=== PATIENT | female | born 1950 | race Two or more races ===

== ENCOUNTER 2020-07-11 06:29 | Day surgery (SDC) | payer MEDICAID ==
--- NOTE | 2020-04-13 14:14 | Opthalmology H&P ---
Ophthalmology H&P H&P Chief Complaint: decreased vision in right eye HPI Vision Affects Ability to: read, manage personal affairs HPI Narrative Blurry vision Exam Visual Acuity: OD 20/100 OS 20/25 Tension: OD 19 OS 36 Eye Exam: normal OU: external exam, palpebral fissure-width, marginal reflex distance, levator function, corneas, anterior chambers, fundus exam; findings: lens - NS Cataract OD> IOL OS Assessment/Plan Treatment Plan: cataract extraction w/ lens implant Goals of Treatment: improvement of vision, enhance quality of life Attestation Attestation The risks and benefits of the surgery as well as alternative procedures were explained to the patient in detail. Calixto Parra MD Apr 13, 2020 14:14
--- NOTE | 2020-04-13 14:15 | Pre-Procedure Note/Attestation ---
Pre-Procedure Note/Attestation Complete Prior to Procedure Planned Procedure: right Procedure Narrative: Cataract extraction with intraocular lens implant right eye Indications for Procedure Pre-Operative Diagnosis: Cataract extraction with intraocular lens implant right eye Attestation I attest that I discussed the nature of the procedure; its benefits; risks and complications; and alternatives (and the risks and benefits of such alternatives), prior to the procedure, with the patient (or the patient's legal field service representative). I attest that, if there was a reasonable possibility of needing a blood transfusion, the patient (or the patient's legal field service representative) was given the [facility] standardized written summary, pursuant to the Rayo Maddie Blood Safety Act ([place] Health and Safety Code # 1645, as amended). I attest that I re-evaluated the patient just prior to the surgery and that there has been no change in the patient's H&P, except as documented below: Calixto Parra MD Apr 13, 2020 14:15
--- NOTE | 2020-07-07 16:30 | Opthalmology H&P ---
Ophthalmology H&P H&P Chief Complaint: decreased vision in right eye HPI Vision Affects Ability to: read, focus/use eyes together, manage personal affairs HPI Narrative Blurry vision Exam Visual Acuity: OD 20/100 OS 20/25 Tension: OD 19 OS 36 Eye Exam: normal OU: external exam, palpebral fissure-width, marginal reflex distance, levator function, corneas, anterior chambers, lens - NS Cataract OD, Pseudo OS, fundus exam; findings: lens - NS Cataract OD, Pseudo OS Assessment/Plan Treatment Plan: cataract extraction w/ lens implant Goals of Treatment: improvement of vision, enhance quality of life Attestation Attestation The risks and benefits of the surgery as well as alternative procedures were explained to the patient in detail. Calixto Parra MD Jul 07, 2020 16:30
--- NOTE | 2020-07-07 16:32 | Pre-Procedure Note/Attestation ---
Pre-Procedure Note/Attestation Complete Prior to Procedure Planned Procedure: right Procedure Narrative: Cataract extraction with intraocular lens implant right eye Indications for Procedure Pre-Operative Diagnosis: Nuclear sclerotic cataract right eye Attestation I attest that I discussed the nature of the procedure; its benefits; risks and complications; and alternatives (and the risks and benefits of such alternatives), prior to the procedure, with the patient (or the patient's legal outside industrial sales representative). I attest that, if there was a reasonable possibility of needing a blood transfusion, the patient (or the patient's legal outside industrial sales representative) was given the [facility] standardized written summary, pursuant to the Rayo [place] Blood Safety Act ([place] Health and Safety Code # 1645, as amended). I attest that I re-evaluated the patient just prior to the surgery and that there has been no change in the patient's H&P, except as documented below: Calixto Parra MD Jul 07, 2020 16:32
[~2020-07-11] VITALS: Ht 152.4 cm; Wt 72.6 kg
[2020-07-11] VITALS (9 sets, daily range): BP systolic 123–145; BP diastolic 68–82
[~2020-07-11 06:29] MED LIST: AMLODIPINE BESYL5 MG ORAL; Akten 3.5% 1ml Btl RIGHT EYE ONE; GLIPIZIDE5 MG ORAL; HYDROCHLOROTHIA25 MG ORAL; LORATADINE10 M1 PO; METFORMIN HCL500 M1 ORAL; Phenylephrine 10% Opth Soln 5ml RIGHT EYE SCH; Proparacaine 0.5% Opth Soln 15ml RIGHT EYE ONE; SIMVASTATIN10 MG ORAL; Tetracaine 0.5% Opth 4ml Soln RIGHT EYE ONE; Tropicamide 1% Opth 15ml Soln RIGHT EYE SCH
[2020-07-11] MEDS ORDERED: Tetracaine 0.5% Opth 4ml Soln RIGHT EYE ONE (07:00)
[2020-07-11] MEDS ORDERED: Akten 3.5% 1ml Btl RIGHT EYE ONE (07:00)
[2020-07-11] MEDS ORDERED: Proparacaine 0.5% Opth Soln 15ml RIGHT EYE ONE (07:00)
[2020-07-11] MEDS: Tobramycin Op Soln 0.3% 5ml RIGHT EYE SCH ×3 (08:45→08:58)
[2020-07-11] MEDS: Diclofenac Sod 0.1% Op Soln RIGHT EYE SCH ×3 (08:45→08:58)
[2020-07-11] MEDS: Phenylephrine 10% Opth Soln 5ml RIGHT EYE SCH ×3 (08:45→08:58)
[2020-07-11] MEDS: Tropicamide 1% Opth 15ml Soln RIGHT EYE SCH ×3 (08:45→08:58)
--- NOTE | 2020-07-11 11:18 | Anethesia Preoperative Eval ---
Anesthesia Pre-op PMH/ROS General Date of Evaluation: Jul 11, 2020 Time of Evaluation: 11:14 Anesthesiologist: Miley ASA Score: ASA 3 Mallampati Score Class I : Soft palate, uvula, fauces, pillars visible Class II: Soft palate, uvula, fauces visible Class III: Soft palate, base of uvula visible Class IV: Only hard plate visible Mallampati Classification: Class II Surgeon: Aida Diagnosis: R eye cataract Surgical Procedure: Cataract exraction Anesthesia History: none Family History: no anesthesia problems Allergies: Coded Allergies: PENICILLINS (Verified Allergy, Severe, 'organs gets swollen', 07/11/20) Patient NPO?: Yes Past Medical History Cardiovascular: Reports: HTN; Denies: CAD, NE, valve dz, arrhythmia, other Pulmonary: Denies: asthma, COPD, ROCIO, other Gastrointestinal/Genitourinary: Reports: GERD; Denies: CRI, ESRD, other Neurologic/Psychiatric: Reports: depression/anxiety; Denies: dementia, CVA, TIA, other Endocrine: Reports: DM; Denies: hypothyroidism, steroids, other HEENT: Reports: cataract (L), cataract (R); Denies: glaucoma, SILETZ TRIBE (L), SILETZ TRIBE (R), other Hematology/Immune: Denies: anemia, DVT, bleeding disorder, other Musculoskeletal/Integumentary: Reports: OA; Denies: RA, DJD, DDD, edema, other Other: other - oveweight PMH Narrative: as above PSxH Narrative: See H&P Anesthesia Pre-op Phys. Exam Physician Exam Last Vital Signs Date Time Temp Pulse Resp B/P (MAP) Pulse Ox O2 Delivery O2 Flow Rate FiO2 07/11/20 08:41 97.7 76 18 130/82 97 Room Air Constitutional: NAD Neurologic: CN 2-12 intact Cardiovascular: RRR, no M/R/G Respiratory: CTA Gastrointestinal: S/NT/ND Airway Exam Mallampati Score: Class II MO: limited Neck: stiff ROM: limited Teeth: missing Dentures: no upper, no lower Anesthesia Pre-op A/P Labs see chart Studies Pre-op Studies: EKG - SR Risk Assessment & Plan Assessment: ASA 3 Plan: MAC Status Change Before Surgery: No Pre-Antibiotics Drug: none Bakari King MD Jul 11, 2020 11:18
[2020-07-11] MEDS ORDERED: fentaNYL 100 mcg/2 mL IV PRN (11:30)
[2020-07-11] MEDS ORDERED: LR 1000ml 1,000 ML IVLG SCH (11:30)
[2020-07-11] MEDS ORDERED: NS Irrig 1000ml ONE (12:00)
[2020-07-11] MEDS ORDERED: Sterile Water Irrig 1000ml IRRIG ONE (12:00)
[2020-07-11] MEDS ORDERED: Midazolam 2mg/2ml Inj ONE (12:00)
[2020-07-11] MEDS ORDERED: LR 1000ml ONE (12:00)
[2020-07-11] MEDS ORDERED: fentaNYL 100 mcg/2 mL IV ONE (12:00)
[2020-07-11] MEDS ORDERED: Kenalog-40 1ml Vial ONE (12:23)
--- NOTE | 2020-07-11 12:44 | Immediate Post-Op Evaluation ---
Immediate Post-Op Evalulation Immediate Post-Op Evalulation Procedure: R eye cataract extraction with IOL Date of Evaluation: Jul 11, 2020 Time of Evaluation: 12:43 IV Fluids: 600 Blood Products: none Estimated Blood Loss: none Urinary Output: none Blood Pressure Systolic: 142 Blood Pressure Diastolic: 76 Pulse Rate: 64 Respiratory Rate: 20 O2 Sat by Pulse Oximetry: 99 Temperature (Fahrenheit): 97.8 Pain Score (1-10): 1 Nausea: No Vomiting: No Complications none Patient Status: reacts, patent, none Hydration Status: adequate Bakari King MD Jul 11, 2020 12:44
--- NOTE | 2020-07-11 12:45 | 48 Hour Post Anesthesia Eval ---
Post Anesthesia Evaluation Procedure: R eye cataract extraction with IOL Date of Evaluation: Jul 11, 2020 Time of Evaluation: 12:44 Blood Pressure Systolic: 128 0: 72 Pulse Rate: 68 Respiratory Rate: 18 Temperature (Fahrenheit): 97.8 O2 Sat by Pulse Oximetry: 99 Airway: patent Nausea: No Vomiting: No Pain Intensity: 1 Hydration Status: adequate Cardiopulmonary Status: stable Mental Status/LOC: patient returned to baseline Follow-up Care/Observations: n/a Post-Anesthesia Complications: none Follow-up care needed: ready to discharge Bakari King MD Jul 11, 2020 12:45
[2020-07-11] MEDS ORDERED: BSS 500ml btl ONE (13:13)
[2020-07-11] MEDS ORDERED: BSS 15ml BTL ONE (13:13)
[2020-07-11] MEDS ORDERED: EPINEPHrine 1mg/1ml Amp ONE (13:13)
[2020-07-11] MEDS ORDERED: Povidone-Iodine 5% opth solution ONE (13:13)
[2020-07-11] MEDS ORDERED: Carbachol 0.01% Op Soln 1.5ml vial ONE (13:13)
[2020-07-11] MEDS ORDERED: acetaZOLAMIDE 500mg Inj ONE (13:13)
--- NOTE | 2020-07-13 10:18 | Brief Operative Note ---
Immediate Post Operative Note Operative Note Chief Complaint: Blurry vision Pre-op Diagnosis: Nuclear sclerotic cataract right eye Procedure: Cataract extraction with IOL implant right eye Post-op Diagnosis: Pseudo OD Findings: consistent w/pre-op dx studies Surgeon: Calixto Parra MD Anesthesiologist: Bakari King MD Anesthesia: MAC Specimen: none Complications: none Condition: stable Fluids: LR Estimated Blood Loss: none Drains: none Implant(s) used?: Yes - IOL-OD Calixto Parra MD Jul 13, 2020 10:18
--- NOTE | 2020-07-13 10:21 | Operative Note - PDOC ---
Operative Note Operative Note Date of Operation/Procedure: Jul 11, 2020 Chief Complaint: Blurry vision Pre-op Diagnosis: Nuclear sclerotic cataract right eye Procedure: Cataract extraction with IOL implant right eye Post-op Diagnosis: Pseudo OD Operative Findings: consistent w/pre-op dx studies Surgeon: Calixto Parra MD Anesthesiologist: Bakari King MD Anesthesia: MAC Specimen: none Complications: none Condition: stable Fluids: LR Estimated Blood Loss: none Drains: none Implant(s) used?: Yes - IOL-OD Indications for Procedure Nuclear sclerotic cataract right eye Description of Procedure This patient has been complaining visually significant cataract in the right eye with the best corrected visual acuity of 20/50 under moderate glare conditions worse. The patient complains of difficulties with glare in performing activities of daily living and wants to manage personal affairs with comfort and accuracy and see well enough to move with safety at home and outdoors. The risks, benefits and alternatives of the procedure were discussed with the patient in the office prior to scheduling surgery. All questions from the patient were answered after the surgical procedure was explained in detail. The risks of the procedure as explained to the patient include, but are not limited to, pain, infection, bleeding, loss of vision, retinal detachment, need for further surgery, loss of lens nucleus, double vision, etc. Alternative procedures were discussed which include, to do nothing or seek a second opinion. Informed consent for this procedure was obtained from the patient. The patient was referred to a primary care physician for a cardiopulmonary clearance prior to surgery, after proper evaluation was done patient was properly scheduled for outpatient surgery. The patient was brought to the operating room where the anesthesiologist established I.V. lines and cardiac monitoring leads. Mild intravenous sedation was administered. The patient was then prepared with a 5% solution of povidone-iodine to the conjunctival fornix and lashes, and a 5% solution of povidone-iodine to the lids and periorbital skin. The patient was then draped in the usual sterile fashion. A lid speculum was then placed in the operative eye. A keratome blade was then used to create a biplanar incision into the anterior chamber. Viscoelastics was then instilled into the anterior chamber. A 3-mm single pass clear corneal incision was made just anterior to the vascular arcade of the temporal limbus using a keratome. Anterior capsulorrhexis was created. The nucleus was hydrodissected and hydrodelineated, and was freely movable in the capsular bag. The lens nucleus was then phacoemulsified. Following the deep groove formation, the lens was split bimanually and the resultant quadrants and epicortex removed under vacuum burst-mode phacoemulsification. Peripheral cortex was removed with the irrigation and aspiration handpiece. The capsular bag was expanded with viscoelastic. The implant was check for proper power and sized. The implant was inspected under the microscope and found to be free of defects. The implant was inserted into the cartridge system under viscoelastic and placed in the capsular bag. The trailing haptic was positioned with the cartridge system. Viscoelastics was removed from the anterior chamber using the irrigation and aspiration unit. The corneal wound was then tested for leaks and none were found. The lid speculum were then removed. Sponge and needle counts were denise ect. An eye patch and shield were placed over the operative eye. The patient was taken to the recovery room in stable condition. There were no complications. The patient tolerated the procedure well. The patient was then transferred to the ambulatory surgery unit in stable and satisfactory condition, was given detailed written instructions and asked to follow up in the office the next day. Calixto Parra MD Jul 13, 2020 10:21
== END 2020-07-11 14:05 | disposition home or self-care (01) ==
LOC: SUR 06:29
DX: H25.11 Age-related nuclear cataract, right eye (principal); Z88.0 Allergy status to penicillin; I10 Essential (primary) hypertension; K21.9 Gastro-esophageal reflux disease without esophagitis; F32.9 Major depressive disorder, single episode, unspecified; F41.9 Anxiety disorder, unspecified; E11.9 Type 2 diabetes mellitus without complications; M19.90 Unspecified osteoarthritis, unspecified site; E66.3 Overweight; Z68.31 Body mass index [BMI] 31.0-31.9, adult
CPT/HCPCS: 66984; 94003; J0171; J1120; J2250; J2704; J3010; J3301; J7120; U0002; U0004; V2632; Z7512; 94150